=== PATIENT | female | born 1985 | race Caucasian/White ===

== ENCOUNTER 2019-06-26 23:13 | Day surgery (SDC) | payer OTHER, SELFPAY ==
[~2019-06-26] VITALS: Ht 162.6 cm; Wt 58.7 kg
[2019-06-27 00:51] LABS: BASO # 0.1 10^3/uL (0.0-0.2); BASO % 0.3 % (0.0-1.0); EOS # 0.3 10^3/uL (0.0-0.50); HEMATOCRIT 38.4 % (36.0-47.0); HEMOGLOBIN 12.6 g/dl (12.0-15.5); LYMPH # 3.1 10^3/uL (1.5-4.5); LYMPH % 19.1 % (24.0-44.0); MEAN CORPUSCULAR HEMOGLOBIN 28.3 pg (27.0-33.0); MEAN CORPUSCULAR HGB CONC 32.8 g/dl (32.0-36.5); MEAN CORPUSCULAR VOLUME 86.1 fl (80.0-96.0); MONO # 0.9 10^3/uL (0.0-0.8); MONO % 5.2 % (0.0-5.0); NEUTROPHILS # 11.9 10^3/uL (1.8-7.7); NEUTROPHILS % 73.1 % (36.0-66.0); PLATELET COUNT, AUTOMATED 233 10^3/uL (150-450); RED BLOOD COUNT 4.46 10^6/uL (4.00-5.40); WHITE BLOOD COUNT 16.3 10^3/uL (4.0-10.0)
[2019-06-27] MEDS ORDERED: GASTROGRAFIN SOLUTION 30ML (Q9963) As Ordered ONE (01:11)
[2019-06-27 01:12] LABS: ALBUMIN 3.7 GM/DL (3.2-5.2); ALT/SGPT 23 U/L (12-78); BILIRUBIN,DIRECT 0.1 MG/DL (0.0-0.2); BILIRUBIN,TOTAL 0.6 MG/DL (0.2-1.0); BLOOD UREA NITROGEN 9 MG/DL (7-18); CALCIUM LEVEL 9.1 MG/DL (8.5-10.1); CARBON DIOXIDE LEVEL 29 MEQ/L (21-32); CHLORIDE LEVEL 107 MEQ/L (98-107); CREATININE FOR GFR 0.74 MG/DL (0.55-1.30); GLOMERULAR FILTRATION RATE > 60.0 (>60); GLUCOSE, FASTING 93 MG/DL (70-100); LIPASE 110 U/L (73-393); POTASSIUM SERUM 3.7 MEQ/L (3.5-5.1); SODIUM LEVEL 141 MEQ/L (136-145); TOTAL PROTEIN 7.4 GM/DL (6.4-8.2)
[2019-06-27] MEDS ORDERED: KETOROLAC 30 MG/ML VIAL (J1885) IV ONE (01:15)
[2019-06-27] MEDS: GASTROGRAFIN SOLUTION 30ML PO SCH ×2 (01:25→01:48)
[2019-06-27] MEDS ORDERED: ISOVUE-370 76% 100ML VIAL (Q9967) As Ordered ONE (02:10)
--- NOTE | 2019-06-27 03:58 | REPVR ---
EXAM: CT Abdomen and Pelvis With Contrast EXAM DATE/TIME: 06/27/19 (2:47am) CLINICAL HISTORY: 34 year old female with generalized abdominal pain TECHNIQUE: Imaging protocol: Axial computed tomography images of the abdomen and pelvis with intravenous contrast. Coronal and sagittal reformatted images were created and reviewed. Radiation optimization: All CT scans at this facility use at least one of these dose optimization techniques: automated exposure control; mA and/or kV adjustment per patient size (includes targeted exams where dose is matched to clinical indication); or iterative reconstruction. Contrast material: Iso Contrast volume: 100 ml Contrast route: Antecubital vein COMPARISON: CT ABDOMEN PELVIS of 02/10/14 FINDINGS: Liver: Normal. No solid mass. Gallbladder and bile ducts: Normal. No calcified stones. No ductal dilatation. Pancreas: Normal. No ductal dilatation. Spleen: Normal. No splenomegaly. Adrenals: Normal. No mass. Kidneys and ureters: Normal. No hydronephrosis. Stomach and bowel: No bowel obstruction. Inflamed, edematous small bowel loops in the RLQ area and right upper pelvis (probably ileal loops). Appendix: Possible dilated, thickened appendix (13 mm diameter) (Ser. 201 - Images #83 - #107). Intraperitoneal space: Normal. No free air. No significant fluid collection. Vasculature: Normal. No abdominal aortic aneurysm. Lymph nodes: Normal. No enlarged lymph nodes. Bladder: Unremarkable as visualized. Reproductive: Unremarkable as visualized. Bones/joints: No acute fracture nor dislocation. Soft tissues: Unremarkable. IMPRESSION: Possible acute nonperforated appendicitis. A dilated non-opacified RLQ bowel loop is seen, in the expected location of the appendix. Clinical correlation is needed. Inflamed, edematous small bowel loops also present in the RLQ area and right upper pelvis --- perhaps inflamed secondary to appendicitis. No abscess. No bowel obstruction. No free air. Clinical correlation is needed. Electronically signed by: Perla Alvarado On 06/27/2019 03:57:30 AM
[2019-06-27] MEDS ORDERED: ACET-683 PO (04:43)
[2019-06-27] MEDS ORDERED: MORPHINE 4 MG/ML 1ML VIAL/SYRINGE (J2270) IV PRN ×2 (04:45→07:15)
[2019-06-27] MEDS ORDERED: PIPERACILLIN/TAZOBACTAM SOD 3.375 GM in D5W MINI-BAG PLUS 50 ML IV ONE (04:45)
[2019-06-27] MEDS ORDERED: ONDANSETRON 4MG/2ML VIAL (J2405) IV ONE (04:45)
[2019-06-27] MEDS ORDERED: MORPHINE 4 MG/ML 1ML VIAL/SYRINGE (J2270) As Ordered ONE (05:05)
[2019-06-27] MEDS ORDERED: ZOSYN 3.375 GM VIAL (J2543) As Ordered ONE (05:05)
[2019-06-27] MEDS ORDERED: ONDANSETRON 4MG/2ML VIAL (J2405) As Ordered ONE ×2 (05:05→08:35)
[2019-06-27 05:54] VITALS: BP 113/81
[2019-06-27] MEDS ORDERED: BUPIVACAINE/EPIN 0.25% 30 ML VIAL As Ordered ONE (07:48)
[2019-06-27] MEDS ORDERED: KCL 20MEQ IN D5/0.45NS 1000ML 1,000 ML IV SCH (07:51)
[2019-06-27] MEDS ORDERED: NORCO, ANEXSIA 5/325MG TABLET (HYDROcodone/ACETAMINOPHEN) PO PRN (08:00)
[2019-06-27] MEDS ORDERED: KETOROLAC 30 MG/ML VIAL (J1885) IV PRN (08:00)
[2019-06-27] MEDS ORDERED: ONDANSETRON 4MG/2ML VIAL (J2405) IV PRN ×2 (08:00→09:15)
[2019-06-27] MEDS ORDERED: ACETAMINOPHEN TAB 650MG DOSE (2X325MG) PO PRN (08:00)
[2019-06-27] MEDS ORDERED: KCL 20MEQ IN D5/.45NACL 1000ML As Ordered ONE (08:05)
[2019-06-27] MEDS ORDERED: MIDAZOLAM INJ 2 MG/2 ML VIAL (J2250) As Ordered ONE (08:35)
[2019-06-27] MEDS ORDERED: propofoL 200 MG/20 ML VIAL As Ordered ONE (08:35)
[2019-06-27] MEDS ORDERED: dexameTHASONE 4 MG/ML 1ML VIAL (J1100) As Ordered ONE (08:35)
[2019-06-27] MEDS ORDERED: SUGAMMADEX SODIUM 500 MG/5 ML VIAL (BRIDION) As Ordered ONE (08:35)
[2019-06-27] MEDS ORDERED: KETOROLAC 60 MG/2 ML VIAL (J1885) As Ordered ONE (08:35)
[2019-06-27] MEDS ORDERED: ROCURONIUM BROMIDE 50 MG/5 ML VIAL As Ordered ONE (08:35)
[2019-06-27] MEDS ORDERED: LIDOCAINE 2% INJ 100 MG/5 ML SDV (FOR ANES.) As Ordered ONE (08:35)
[2019-06-27] MEDS ORDERED: fentaNYL 250 MCG/5 ML INJECTION (J3010) As Ordered ONE (08:35)
[2019-06-27] MEDS ORDERED: PANTOPRAZOLE 40MG INJ (PROTONIX) (C9113) IV SCH (09:00)
[2019-06-27] MEDS ORDERED: SENOKOT S TAB PO SCH (09:00)
[2019-06-27] MEDS ORDERED: oxyCODONE 5MG TAB As Ordered ONE (09:06)
[2019-06-27] MEDS ORDERED: MORPHINE 10 MG/ML 1ML VIAL (J2270) As Ordered ONE (09:06)
[2019-06-27] MEDS: MORPHINE 10 MG/ML 1ML VIAL (J2270) IV PRN ×4 (09:06→09:23)
[2019-06-27] MEDS ORDERED: METOCLOPRAMIDE INJ 10MG/2ML VIAL (J2765) IV PRN (09:15)
[2019-06-27] MEDS ORDERED: PERCOCET 5MG/325MG TAB PO PRN (09:15)
[2019-06-27] MEDS ORDERED: oxyCODONE 5MG TAB PO PRN (09:15)
[2019-06-27] MEDS ORDERED: fentaNYL 100 MCG/2 ML INJECTION (J3010) IV PRN (09:15)
[2019-06-27] MEDS ORDERED: LR 1,000 ML IV SCH (09:15)
[2019-06-27 09:49] VITALS: BP 121/83
--- NOTE | 2019-06-27 10:23 | HPE ---
DATE OF ADMISSION: 06/27/2019 CHIEF COMPLAINT: Right lower quadrant pain. HISTORY OF PRESENT ILLNESS: Patient is a 34-year-old female who developed lower abdominal pain, started yesterday. It gradually got worse throughout the day. She first thought she had a ruptured ovarian cyst since she has had one in the past, but since the pain was progressively getting worse, she came into the emergency room (ER) for evaluation. In the ER, she had an elevated white count as well as CT findings suspicious for thick and dilated appendix and concerns for possible appendicitis. Therefore, I was called to evaluate. This morning her pain is still significant; it is not improving at all. No nausea or vomiting, no fevers or chills. No problems with urination or bowel movements. No recent trauma to the area. No medications and no recent illness. PAST MEDICAL HISTORY: Negative. PAST SURGICAL HISTORY: Laparoscopic procedure for ovarian cyst that was ruptured. ALLERGIES: None. HOME MEDICATIONS: None. SOCIAL HISTORY: Smokes a pack a day. Denies drug or alcohol abuse. FAMILY HISTORY: Noncontributory. REVIEW OF SYSTEMS: Pertinent positives and negatives as stated history of the present illness. PHYSICAL EXAMINATION: General: Alert and oriented times three. No acute distress. Vital signs: Temperature 98.6, pulse 78, respirations 16, blood pressure 113/81, pulse oximetry 100% on room air. HEENT: Pupils equally round and react to light and accommodation. Heart: S1, S2, regular rate and rhythm. Lungs: Clear to auscultation bilaterally. Abdomen: Soft, tender to palpation right lower quadrant. Localized guarding. No rebound or rigidity. Extremities: No clubbing, cyanosis or edema. LABORATORY DATA: White count 16.3, hemoglobin 12.6, platelets 233, potassium 3.7, creatinine 0.74, lactic acid 0.9. IMAGING: CT abdomen and pelvis was completed, which showed dilated loops of small bowel in the right lower quadrant with a dilated thickened appendix up to 13 mm in diameter. ASSESSMENT/PLAN: Patient is a 34-year-old female with acute appendicitis. Recommendation is to proceed with laparoscopic appendectomy. Risks and benefits of procedure not limited to but including bleeding, infection, hernia formation, damage to surrounding structures, and need for further surgery were discussed in detail with the patient. Informed consent was obtained and procedure was planned. Postoperatively, will keep her overnight, make sure she has no fevers, is tolerating diet, then plan to discharge home first thing in the morning.
[2019-06-27] MEDS ORDERED: HYDR-4571 PO (10:34)
[2019-06-27 10:42] VITALS: BP 116/81
[2019-06-27] MEDS ORDERED: PIPERACILLIN/TAZOBACTAM SOD 3.375 GM in D5W MINI-BAG PLUS 50 ML IV SCH (11:00)
[2019-06-27 11:17] VITALS: BP 111/76
[2019-06-27 12:10] VITALS: BP 114/72
--- NOTE | 2019-06-29 16:34 | RO ---
DATE OF PROCEDURE: 06/27/2019 PREOPERATIVE DIAGNOSIS: Acute appendicitis. POSTOPERATIVE DIAGNOSIS: Acute appendicitis. PROCEDURE: Laparoscopic appendectomy. SURGEON: Dr. Oziel Bhakta MACHINE SETUP OPERATOR: None. ANESTHESIA: General. ESTIMATED BLOOD LOSS: 5 mL. COMPLICATIONS: None. INDICATIONS FOR PROCEDURE: The patient is a 34-year-old female who presents with right lower quadrant pain for just over a day, found to have acute appendicitis on CT. Recommendation was to proceed with laparoscopic possible open appendectomy. The risks and benefits of the procedure not limited to but including bleeding, infection, hernia formation, damage to surrounding structures and need for further surgery were discussed in detail with the patient. Informed consent was obtained and procedure was planned. DESCRIPTION OF PROCEDURE: The patient was brought back to operating room three, after sufficient sedation the abdomen was sterilely prepped and draped. Next, a time-out was done to confirm proper patient, proper procedure. Following that, a 5 mm incision made in left upper quadrant, Veress needle inserted and the abdomen was insufflated to 15 mmHg. Next, the Veress needle was removed and a 5 mm Optiview port was used to gain access to the abdomen. Once the abdomen was entered, another 8 mm port was placed supraumbilically and another 5 mm port suprapubically. The right lower quadrant was identified, the cecum was elevated up revealing the appendix. The appendix was then elevated. Mesoappendix was taken down using the Enseal to the base of the appendix, which was then ligated with two PDS Endoloops and then amputated using the Enseal. It was placed inside of a 5 mm Endo Catch bag and brought out through the umbilical port site. Once that was completed, the right lower quadrant was examined to confirm hemostasis. The abdomen was then desufflated. Skin incisions were closed with #4-0 Vicryl subcuticular suture. The abdomen was cleaned and dried. Steri-Strips, 4x4, and tape were applied thus ending procedure.
== END 2019-06-27 13:45 | disposition home or self-care (01) ==
LOC: M ED 23:13 → M SDC 06-27 04:37 → M MS5PR 06-27 05:57 → M SDC 06-27 13:45
PROVIDERS: ATTEND Surgery
DX: K35.890 Other acute appendicitis without perforation or gangrene (principal); F17.210 Nicotine dependence, cigarettes, uncomplicated
CPT/HCPCS: 44970; 74177; 80048; 80076; 81001; 83605; 83690; 84702; 85025; 87040; 87186; 88302; 96374; 96375; 96376; 99284; C9113; J1100; J1885; J2250; J2270; J2405; J2543; J3010; Q9967

== ENCOUNTER → 2019-08-18 | Outpatient (CLI) | payer MEDICAID ==
[~2019-08-18] MED LIST: ACET-683 PO; HYDR-4571 PO
[2019-08-18 16:48] LABS: HCG, SERUM QUANTITATIVE < 1.0 MIU/ML
[2019-08-18 16:53] LABS: HCG, SERUM QUALITATIVE NEGATIVE (NEGATIVE)
== END ==
LOC: M LAB 15:46
PROVIDERS: ATTEND Physician Assistant Medical
DX: N91.2 Amenorrhea, unspecified (principal)

== ENCOUNTER 2020-02-12 08:32 | Inpatient (IN) | payer MEDICAID, OTHER ==
[~2020-02-12] VITALS: Ht 160 cm; Wt 68.2 kg
[2020-02-12 08:59] VITALS: BP 141/74
[2020-02-12] MEDS ORDERED: LR 1,000 ML IV SCH (09:26)
--- NOTE | 2020-02-12 10:00 | HPE ---
DATE OF ADMISSION: 02/12/2020 Payal is a 34-year-old 6, para 3-0-2-3 at 21 6/7 weeks gestation with an estimated date of confinement (EDC) of 06/18/2020 based on last menstrual period. She presents to labor and delivery as an registered patient. She has received no care throughout this . She reports that she started having uterine contractions at approximately 0700 this morning with a spontaneous rupture of membranes after palpating a large bag of water and her vagina and 0730. She does report the fluid is clear and now she reports some positive bleeding. She does report movement. CARE: None. course complicated by advanced maternal age, smoking during and no care. OBSTETRICAL HISTORY: #1: 04/10/2003, spontaneous vaginal delivery at term, live female weighing 8 pounds 6 ounces uncomplicated. #2: 12/20/2005, spontaneous vaginal delivery at term male weighing 7 pounds 13 ounces uncomplicated . #3: 10/28/2017, spontaneous vaginal delivery at 39 weeks following induction for pre-eclampsia. Male fetus 7 pounds 3 ounces. #4: 2003, spontaneous miscarriage. #5: 2016 spontaneous miscarriage. OBSTETRIC LABS: None for review. PAST MEDICAL HISTORY: History of an abnormal Pap. Endometriosis. Ovarian cyst rupture. SURGERIES: Colposcopy. Ovarian cystectomy. Appendectomy. FAMILY HISTORY: Cancer, hypertension, diabetes. SOCIAL HISTORY: The patient is however, there is a father of baby involved and he is at bedside and supportive. She is a smoker. She reports smoking half a pack per day. She denies alcohol and drug use. She does report a positive history of human papillomavirus (HPV) and she denies history of abuse physical, sexual and emotional. ALLERGIES: No known drug allergies. CURRENT MEDICATIONS: Chewable vitamins from time to time. OBJECTIVE: Blood pressure upon arrival 141/74, maternal heart rate 117. heart rate difficult to trace. It does seem to be nearing the maternal heart rate. Contractions are every 2 minutes. They do palpate strong. She is grossly ruptured with blood-stained amniotic fluid. Sterile vaginal exam 3-4 cm dilated. There is a part in the vagina uncertain of whether it is an arm or a leg. Bedside ultrasound shows twin gestation with a dividing membranes. ASSESSMENT: Intrauterine twin gestation at this time and 21 weeks 6 days based on last menstrual period (LMP), term premature rupture of membranes (tPROM), labor. PLAN: Per consult with Dr. Carina Koehler, admit the patient to labor and delivery. Routine labs with the addition of a spot urine of pre-eclamptic profile. labs. Bedside ultrasound. IV fluids. Clear liquid diet. Out of bed ad matilde. I did review the nonviability of this twin gestation with the patient and her . They are distraught over the diagnosis. I do anticipate continued labor progress and vaginal delivery. I reviewed with the patient that as long as she stays stable, the plan will be to continue with a vaginal delivery. If there is any evidence of hemorrhage, then we would proceed to section. She has been verbally consented for emergency surgery and blood products if that is necessary. The patient and her partner have had their questions answered and she will be monitored.
[2020-02-12 11:14] VITALS: BP 133/63
[2020-02-12 11:19] LABS: MEAN CORPUSCULAR HGB CONC 33.3 g/dl (32.0-36.5); PLATELET COUNT, AUTOMATED 277 10^3/uL (150-450); RED BLOOD COUNT 2.76 10^6/uL (4.00-5.40); WHITE BLOOD COUNT 18.6 10^3/uL (4.0-10.0)
--- NOTE | 2020-02-12 11:25 | REP ---
Obstetric sonography: Multiple gestation. History: No care. Twin gestation. Premature rupture of membranes. No comparison study. Findings: There appears to be a diamniotic monochorionic twin gestation. Placenta is posterior grade 0 without evidence of previa or abruption. Closed cervical length could not be obtained. It appears that the legs of baby A are within the endocervical canal. There is discordant growth. Twin A is breech in lie along maternal left. No heart rate is seen in the fetus A consistent with intrauterine demise. Severe hydrops and ascites are seen in baby A. Amniotic fluid is subjectively oligohydramnios. The deepest pocket surrounding baby A is 0.9 centimeters. Abdominal ascites may overestimate gestational age of fetus A. Twin B is living breech in lie along the maternal right. heart rate for twin B is 127 beats per minute. Amniotic fluid is subjectively oligohydramnios. The deepest pocket of amniotic fluid measures 1.3 cm. No extrauterine abnormalities observed. Biometry chart fetus A: BPD 4.7 cm = 20 weeks 1 day Head circumference 16.1 cm = 18 weeks 6 days Abdominal circumference 27.4 cm = 31 weeks 3 days Femur length 2.5 cm = 17 weeks 4 days Humeral length 2.9 cm = 19 weeks 3 days HC/AC ratio abnormal 0.59. Cephalic index 0.85. Estimated weight 750 grams, 1 pound 10 ounces, JUAN 0.9 cm. heart rate 0. Biometry chart fetus B: BPD 4.3 cm = 19 weeks 0 days Head circumference 16.1 cm = 18 weeks 6 days Abdominal circumference 13.2 cm = 18 weeks 5 days Femur length 2.8 cm = 18 weeks 4 days Humeral length 2.8 cm = 19 weeks 1 day HC/AC ratio normal 1.22. Cephalic index normal 0.74. Estimated weight 283 grams, 0 pounds 8 ounces, less than 3rd percentile. heart rate 127 beats per minute JUAN 1.3. The following anatomic structures are identified in fetus A and felt to be unremarkable: choroid plexus, spine, upper extremities. The following anatomic structures are identified in fetus B and felt to be unremarkable: cranium, choroid plexus, cavum, cerebellum and posterior fossa, lungs, left-sided stomach, three-vessel cord, kidneys, spine, upper and lower extremities. Impression: 1. Twin intrauterine gestation. Intrauterine demise of twin A, footling breech lie; legs in the maternal cervical canal. Significant hydrops fetus A. Large amount of ascites. Fetus B living, breech in lie. Gestational age estimate based on fetus B is 21 weeks 4 days, JACOB June 20, 2020. 2. Oligohydramnios. Electronically Signed by Brett Bravo MD 02/12/2020 03:50 P
[2020-02-12 11:44] LABS: ALT/SGPT 22 U/L (12-78); BILIRUBIN,TOTAL 0.5 MG/DL (0.2-1.0); CREATININE FOR GFR 0.53 MG/DL (0.55-1.30); GLOMERULAR FILTRATION RATE > 60.0 (>60); LDH LACTATE DEHYDROGENASE 170 U/L (84-246); URIC ACID 2.8 MG/DL (2.6-6.0)
[2020-02-12] MEDS ORDERED: RHOGAM 300 MCG (1500 IU) INJ (J2790) IM SCH (12:00)
[2020-02-12] MEDS ORDERED: MEASLES,MUMPS,RUBELLA VACCINE INJ (MMR-II) (90707) SC SCH (12:00)
[2020-02-12] MEDS ORDERED: IBUPROFEN 800 MG TAB PO PRN (12:00)
[2020-02-12] MEDS ORDERED: ACETAMINOPHEN TAB 650MG DOSE (2X325MG) PO PRN (12:00)
[2020-02-12] MEDS ORDERED: IBUPROFEN 600 MG TAB PO PRN (12:00)
[2020-02-12] MEDS ORDERED: ACETAMINOPHEN 500 MG TAB PO PRN (12:00)
[2020-02-12] MEDS ORDERED: DOCUSATE SODIUM 100 MG CAP PO PRN (12:00)
[2020-02-12] MEDS ORDERED: DIBUCAINE 1% OINTMENT 30GM TOP PRN (12:00)
[2020-02-12 12:10] VITALS: BP 91/56
[2020-02-12] MEDS ORDERED: OXYTOCIN INJ 10 UNITS/ML VIAL (J2590) IV ONE (12:15)
--- NOTE | 2020-02-12 12:22 | DN ---
DATE: Dejah is a 34-year-old, 6, para 3-2-2-3-1 now, was admitted to labor and delivery in active labor with premature rupture of membranes. Her labor ensued physiologically. She did reach full dilation at 11:26. She pushed once and delivered twin A in breech position nonliving fetus at 11:32. The cord was clamped times two and cut by myself. The fetus was laid on the maternal abdomen for bonding. She delivered twin B in breech position nonliving fetus at 11:36 with the placenta at the same time. The cord was clamped times two, cut by myself and placed on maternal abdomen. Placenta delivered intact. It will be sent to pathology. This is a mono Di twin gestation. Of note, twin A severe hydrops, twin B appears to be intrauterine growth restriction (IUGR). They both appear to be female fetuses. Uterine hemostasis was achieved with IV Pitocin rapid infusion and uterine fundal massage. Estimated blood loss 200 mL. Perineum and vagina were inspected and noted to be intact. At this time, I have not discussed with the patient genetic testing nor autopsy. The parents and one family member are in the room for support. She is reacting appropriately, will consider early discharge later in the day. At the close of delivery, instrument counts and lap counts were correct and verified.
[2020-02-12 12:32] LABS: BARBITURATES URINE REFLEX NEGATIVE (NEGATIVE); BENZODIAZEPINES URINE REFLEX NEGATIVE (NEGATIVE); CANNABINOIDS URINE REFLEX NEGATIVE (NEGATIVE); COCAINE METABOLITE URINE REFLE NEGATIVE (NEGATIVE); METHADONE URINE REFLEX NEGATIVE (NEGATIVE); PHENCYCLIDINE URINE REFLEX NEGATIVE (NEGATIVE)
[2020-02-12 12:33] LABS: CREATININE,RANDOM URINE 80.2 MG/DL; TOTAL PROTEIN,RANDOM URINE 123.7 MG/DL (0.0-12.0)
[2020-02-12 12:34] LABS: HEPATITIS C VIRUS ABY INDEX < 0.0 INDEX (<0.8)
[2020-02-12 12:35] LABS: HIV 1&2 SCREEN CENTAUR NEGATIVE (NEGATIVE)
[2020-02-12 12:47] VITALS: BP 132/73
[2020-02-12 13:11] LABS: AMPHETAMINES URINE REFLEX PENDING CONFIRMATION (NEGATIVE); OPIATES URINE REFLEX PENDING CONFIRMATION (NEGATIVE)
[2020-02-12 13:36] VITALS: BP 118/58
[2020-02-12 13:49] LABS: CHLAMYDIA DNA AMPLIFICATION NEGATIVE (NEGATIVE); GC DNA AMPLIFICATION NEGATIVE (NEGATIVE)
[2020-02-12 19:49] VITALS: BP 134/80
[2020-02-12] MEDS ORDERED: INFLUENZA QUADRIVALENT PF VACCINE 0.5ML SYRINGE (90686) IM ONE (20:00)
[2020-02-13] MEDS ORDERED: PRENATAL VITAMINS CHEWABLE TABLET PO SCH (09:00)
[2020-02-17 08:06] LABS: Amphetamine Negative (Cutoff=500); Amphetamines Positive (.); Codeine Negative (Cutoff=200); GC Methamphetam >4000 ng/mL (Cutoff=500); GC Morphine 544 ng/mL (Cutoff=200); Methamphetamine Positive (.); Morphine Positive (.); Opiates Positive (.)
== END 2020-02-12 20:34 | disposition home or self-care (01) | DRG 805 ==
LOC: M LDO 08:32 → M LDI 09:16 → M PCU 13:27 → M LDI 13:30
PROVIDERS: ADMIT Advanced Practice Midwife; ATTEND Advanced Practice Midwife
PROC: 10E0XZZ Delivery of Products of Conception, External Approach (ICD-10-PCS; principal; 2020-02-12)
DX: O42.012 Preterm premature rupture of membranes, onset of labor within 24 hours of rupture, second trimester (principal); Z37.4 Twins, both stillborn; O45.92 Premature separation of placenta, unspecified, second trimester; O30.032 Twin pregnancy, monochorionic/diamniotic, second trimester; Z3A.21 21 weeks gestation of pregnancy; O99.334 Smoking (tobacco) complicating childbirth; F17.200 Nicotine dependence, unspecified, uncomplicated

== ENCOUNTER 2022-10-31 16:09 | Outpatient (CLI) | payer OTHER ==
[~2022-10-31] VITALS: Ht 162.6 cm; Wt 73.2 kg
[2022-10-31 16:28] VITALS: BP 127/82
[2022-10-31] MEDS ORDERED: HOME MED LIST COMPLETE! XX SCH (16:45)
[2022-10-31 18:12] LABS: BASO # 0.1 10^3/uL (0.0-0.2); BASO % 0.5 % (0.0-1.0); HEMATOCRIT 37.5 % (36.0-47.0); HEMOGLOBIN 11.7 g/dl (12.0-15.5); LYMPH # 2.8 10^3/uL (1.5-5.0); MEAN CORPUSCULAR HEMOGLOBIN 28.7 pg (27.0-33.0); MEAN CORPUSCULAR HGB CONC 31.2 g/dl (32.0-36.5); MEAN CORPUSCULAR VOLUME 92.1 fl (80.0-96.0); MONO # 0.7 10^3/uL (0.0-0.8); MONO % 4.7 % (2.0-8.0); NEUTROPHILS # 10.1 10^3/uL (1.5-8.5); NEUTROPHILS % 72.5 % (36.0-66.0); PLATELET COUNT, AUTOMATED 222 10^3/uL (150-450); RED BLOOD COUNT 4.07 10^6/uL (4.00-5.40); WHITE BLOOD COUNT 13.9 10^3/uL (4.0-10.0)
[2022-10-31 18:51] LABS: TOTAL PROTEIN,RANDOM URINE 8.9 MG/DL (0.0-14.0)
[2022-10-31 18:52] LABS: AMPHETAMINES URINE REFLEX NEGATIVE (NEGATIVE); BARBITURATES URINE REFLEX NEGATIVE (NEGATIVE); BENZODIAZEPINES URINE REFLEX NEGATIVE (NEGATIVE); CANNABINOIDS URINE REFLEX NEGATIVE (NEGATIVE); COCAINE METABOLITE URINE REFLE NEGATIVE (NEGATIVE); METHADONE URINE REFLEX NEGATIVE (NEGATIVE); OPIATES URINE REFLEX NEGATIVE (NEGATIVE)
[2022-10-31 18:53] LABS: PHENCYCLIDINE URINE REFLEX NEGATIVE (NEGATIVE)
[2022-10-31 19:27] LABS: URIC ACID 3.3 MG/DL (3.1-7.8)
[2022-10-31 19:29] LABS: LDH LACTATE DEHYDROGENASE 128 U/L (120-246)
[2022-10-31 19:30] LABS: ALT/SGPT 26 U/L (7.0-40); AST/SGOT 12 U/L (<34); BILIRUBIN,TOTAL 0.2 MG/DL (0.3-1.2); CREATININE FOR GFR 0.51 MG/DL (0.55-1.30); GLOMERULAR FILTRATION RATE > 60.0 (>60)
[2022-10-31 19:56] LABS: HIV 1&2 SCREEN CENTAUR NEGATIVE (NEGATIVE)
[2022-10-31 20:34] LABS: HEPATITIS C VIRUS ABY INDEX > 11.0 INDEX (<0.8)
== END 2022-10-31 19:15 | disposition home or self-care (01) ==
LOC: M LDO 16:09
PROVIDERS: ATTEND Advanced Practice Midwife
DX: O60.02 Preterm labor without delivery, second trimester (principal); O99.332 Smoking (tobacco) complicating pregnancy, second trimester; F17.210 Nicotine dependence, cigarettes, uncomplicated; O99.322 Drug use complicating pregnancy, second trimester; F11.10 Opioid abuse, uncomplicated; O99.342 Other mental disorders complicating pregnancy, second trimester; F31.30 Bipolar disorder, current episode depressed, mild or moderate severity, unspecified; F41.9 Anxiety disorder, unspecified; O09.522 Supervision of elderly multigravida, second trimester; Z3A.27 27 weeks gestation of pregnancy

== ENCOUNTER → 2022-12-10 | Outpatient (CLI) | payer OTHER ==
[2022-12-10 15:52] LABS: HEMATOCRIT 36.6 % (36.0-47.0); HEMOGLOBIN 11.9 g/dl (12.0-15.5); MEAN CORPUSCULAR HGB CONC 32.5 g/dl (32.0-36.5); MEAN CORPUSCULAR VOLUME 89.1 fl (80.0-96.0); PLATELET COUNT, AUTOMATED 217 10^3/uL (150-450); RED BLOOD COUNT 4.11 10^6/uL (4.00-5.40); WHITE BLOOD COUNT 8.5 10^3/uL (4.0-10.0)
[2022-12-10 16:12] LABS: URIC ACID 3.5 MG/DL (3.1-7.8)
[2022-12-10 16:14] LABS: LDH LACTATE DEHYDROGENASE 158 U/L (120-246)
[2022-12-10 16:15] LABS: ALT/SGPT 31 U/L (7.0-40); AST/SGOT 26 U/L (<34); BILIRUBIN,TOTAL 0.4 MG/DL (0.3-1.2); CREATININE FOR GFR 0.54 MG/DL (0.55-1.30); GLOMERULAR FILTRATION RATE > 60.0 (>60)
[2022-12-10 18:05] LABS: TOTAL PROTEIN,RANDOM URINE 25.6 MG/DL (0.0-14.0)
[2022-12-10 18:10] LABS: CREATININE,RANDOM URINE 99.3 MG/DL
[2022-12-10 19:29] LABS: GC DNA AMPLIFICATION NEGATIVE (NEGATIVE)
== END ==
LOC: M PLALAB 13:25
PROVIDERS: ATTEND Advanced Practice Midwife
DX: Z34.93 Encounter for supervision of normal pregnancy, unspecified, third trimester (principal)

== ENCOUNTER 2022-12-21 12:13 | Outpatient (CLI) | payer OTHER ==
[~2022-12-21] VITALS: Ht 162.6 cm; Wt 77.2 kg
[~2022-12-21 12:13] MED LIST changes: -BETAMETHASONE SOLUSPAN 6MG/ML 5ML VIAL IM SCH; -PRENTAB9 PO; -suboxone
[2022-12-21 12:44] VITALS: BP 126/83
[2022-12-21] MEDS ORDERED: PRENTAB9 PO (12:46)
[2022-12-21] MEDS ORDERED: suboxone (12:57)
[2022-12-21] MEDS ORDERED: HOME MED LIST COMPLETE! XX SCH (13:00)
[2022-12-21] MEDS ORDERED: BETAMETHASONE SOLUSPAN 6MG/ML 5ML VIAL IM SCH (14:00)
[2022-12-21 14:35] LABS: LDH LACTATE DEHYDROGENASE 182 U/L (120-246)
[2022-12-21 14:36] LABS: ALT/SGPT 26 U/L (7.0-40); AST/SGOT 28 U/L (<34); BILIRUBIN,TOTAL 0.5 MG/DL (0.3-1.2); CREATININE FOR GFR 0.63 MG/DL (0.55-1.30); GLOMERULAR FILTRATION RATE > 60.0 (>60)
[2022-12-21 14:40] VITALS: BP 119/76
[2022-12-21 14:41] LABS: URIC ACID 4.1 MG/DL (3.1-7.8)
[2022-12-21 14:55] LABS: TOTAL PROTEIN,RANDOM URINE 49.5 MG/DL (0.0-14.0)
[2022-12-21 15:10] LABS: HEMATOCRIT 33.7 % (36.0-47.0); HEMOGLOBIN 11.2 g/dl (12.0-15.5); MEAN CORPUSCULAR HEMOGLOBIN 29.4 pg (27.0-33.0); MEAN CORPUSCULAR HGB CONC 33.2 g/dl (32.0-36.5); MEAN CORPUSCULAR VOLUME 88.5 fl (80.0-96.0); PLATELET COUNT, AUTOMATED 214 10^3/uL (150-450); RED BLOOD COUNT 3.81 10^6/uL (4.00-5.40)
[2022-12-21 15:11] LABS: CREATININE,RANDOM URINE 385.7 MG/DL
== END 2022-12-21 16:00 | disposition home or self-care (01) ==
LOC: M LDO 12:13
PROVIDERS: ATTEND Advanced Practice Midwife
DX: O26.893 Other specified pregnancy related conditions, third trimester (principal); R03.0 Elevated blood-pressure reading, without diagnosis of hypertension; Z3A.34 34 weeks gestation of pregnancy

== ENCOUNTER → 2022-12-21 | Outpatient (REF) | payer OTHER ==
[~2022-12-21] MED LIST changes: +BETAMETHASONE SOLUSPAN 6MG/ML 5ML VIAL IM SCH; +PRENTAB9 PO; +suboxone
== END ==
LOC: M SFHCWAGY 12:46
PROVIDERS: ATTEND Advanced Practice Midwife
DX: Z34.93 Encounter for supervision of normal pregnancy, unspecified, third trimester (principal)

== ENCOUNTER 2022-12-22 14:07 | Outpatient (CLI) | payer OTHER ==
[~2022-12-22] VITALS: Ht 162.6 cm; Wt 79.7 kg
[~2022-12-22 14:07] MED LIST changes: +PRENTAB9 PO; +suboxone
[2022-12-22 14:23] VITALS: BP 132/74
[2022-12-22] MEDS ORDERED: HOME MED LIST COMPLETE! XX SCH (14:40)
[2022-12-22] MEDS ORDERED: BETAMETHASONE SOLUSPAN 6MG/ML 5ML VIAL IM ONE (15:30)
== END 2022-12-22 15:35 | disposition home or self-care (01) ==
LOC: M LDO 14:07
PROVIDERS: ATTEND Specialist
DX: O26.893 Other specified pregnancy related conditions, third trimester (principal); R03.0 Elevated blood-pressure reading, without diagnosis of hypertension; Z3A.34 34 weeks gestation of pregnancy

== ENCOUNTER → 2023-09-23 | Outpatient (CLI) | payer OTHER ==
[~2023-09-23] MED LIST changes: +SUBO8MIS SL
== END ==
LOC: M OUTALCOH 07:51
PROVIDERS: ATTEND Psychiatry & Neurology Psychiatry
DX: Z13.39 Encounter for screening examination for other mental health and behavioral disorders (principal)

== ENCOUNTER 2023-10-30 08:40 | Outpatient (RCR) | payer OTHER | END 2023-10-31 | LOC: M OUTALCOH 08:40 | PROVIDERS: ATTEND Psychiatry & Neurology Psychiatry | DX: F11.20 Opioid dependence, uncomplicated (principal); F15.20 Other stimulant dependence, uncomplicated; F17.200 Nicotine dependence, unspecified, uncomplicated ==

== ENCOUNTER 2023-11-27 11:57 | Outpatient (RCR) | payer OTHER | END 2023-12-01 | LOC: M OUTALCOH 11:57 | PROVIDERS: ATTEND Psychiatry & Neurology Psychiatry | DX: F11.20 Opioid dependence, uncomplicated (principal); F15.20 Other stimulant dependence, uncomplicated; F17.200 Nicotine dependence, unspecified, uncomplicated ==

== ENCOUNTER 2023-12-30 14:00 | Outpatient (RCR) | payer OTHER | END 2024-01-01 | LOC: M OUTALCOH 14:00 | PROVIDERS: ATTEND Psychiatry & Neurology Child & Adolescent Psychiatry | DX: F11.20 Opioid dependence, uncomplicated (principal); F15.20 Other stimulant dependence, uncomplicated; F17.200 Nicotine dependence, unspecified, uncomplicated ==

== ENCOUNTER 2024-01-17 15:00 | Outpatient (RCR) | payer OTHER | END 2024-01-30 | LOC: M OUTALCOH 15:00 | PROVIDERS: ATTEND Psychiatry & Neurology Psychiatry | DX: F11.20 Opioid dependence, uncomplicated (principal); F15.20 Other stimulant dependence, uncomplicated; F17.200 Nicotine dependence, unspecified, uncomplicated ==

== ENCOUNTER 2024-01-27 16:00 | Outpatient (RCR) | payer OTHER | END 2024-01-30 | LOC: M OUTALCOH 16:00 | PROVIDERS: ATTEND Psychiatry & Neurology Psychiatry | DX: F11.20 Opioid dependence, uncomplicated (principal); F15.20 Other stimulant dependence, uncomplicated; F17.200 Nicotine dependence, unspecified, uncomplicated ==

== ENCOUNTER 2024-03-27 15:22 | Outpatient (RCR) | payer OTHER | END 2024-03-31 | LOC: M OUTALCOH 15:22 | PROVIDERS: ATTEND Psychiatry & Neurology Child & Adolescent Psychiatry | DX: F11.20 Opioid dependence, uncomplicated (principal); F15.20 Other stimulant dependence, uncomplicated; F17.200 Nicotine dependence, unspecified, uncomplicated ==

== ENCOUNTER 2024-04-13 08:23 | Outpatient (RCR) | payer OTHER | END 2024-05-01 | LOC: M OUTALCOH 08:23 | PROVIDERS: ATTEND Psychiatry & Neurology Child & Adolescent Psychiatry | DX: F11.20 Opioid dependence, uncomplicated (principal); F15.20 Other stimulant dependence, uncomplicated; F17.200 Nicotine dependence, unspecified, uncomplicated ==

== ENCOUNTER 2024-05-11 09:30 | Outpatient (RCR) | payer OTHER | END 2024-05-31 | LOC: M OUTALCOH 09:30 | PROVIDERS: ATTEND Psychiatry & Neurology Psychiatry | DX: F11.20 Opioid dependence, uncomplicated (principal); F15.20 Other stimulant dependence, uncomplicated; F17.200 Nicotine dependence, unspecified, uncomplicated ==

== ENCOUNTER → 2024-06-01 | Outpatient (CLI) | payer OTHER | LOC: M RAD 06:44 | PROVIDERS: ATTEND Nurse Practitioner Family | DX: B19.20 Unspecified viral hepatitis C without hepatic coma (principal); K76.0 Fatty (change of) liver, not elsewhere classified ==

== ENCOUNTER → 2024-06-18 | Outpatient (CLI) | payer OTHER | LOC: M WHC 14:58 | PROVIDERS: ATTEND Nurse Practitioner Family | DX: Z12.31 Encounter for screening mammogram for malignant neoplasm of breast (principal); R92.323 Mammographic fibroglandular density, bilateral breasts ==

== ENCOUNTER → 2024-06-18 | Outpatient (REF) | payer OTHER ==
[2024-06-23 14:57] LABS: HPV APTIMA Detected (Not Detected)
== END ==
LOC: M SFHCWAGY 17:34
PROVIDERS: ATTEND Nurse Practitioner Family
DX: Z12.4 Encounter for screening for malignant neoplasm of cervix (principal); R87.5 Abnormal microbiological findings in specimens from female genital organs; R87.810 Cervical high risk human papillomavirus (HPV) DNA test positive

== ENCOUNTER 2024-06-19 14:41 | Outpatient (RCR) | payer OTHER | END 2024-07-01 | LOC: M OUTALCOH 14:41 | PROVIDERS: ATTEND Psychiatry & Neurology Psychiatry | DX: F11.20 Opioid dependence, uncomplicated (principal); F15.20 Other stimulant dependence, uncomplicated; F17.200 Nicotine dependence, unspecified, uncomplicated ==

== ENCOUNTER → 2024-06-25 | Outpatient (CLI) | payer OTHER ==
[2024-06-25 11:13] LABS: HEMATOCRIT 39.7 % (36.0-47.0); HEMOGLOBIN 13.5 g/dl (12.0-15.5); MEAN CORPUSCULAR VOLUME 85.2 fl (80.0-96.0); PLATELET COUNT, AUTOMATED 185 10^3/uL (150-450); RED BLOOD COUNT 4.66 10^6/uL (4.00-5.40); WHITE BLOOD COUNT 7.1 10^3/uL (4.0-10.0)
[2024-06-25 11:34] LABS: HEMOGLOBIN A1c 5.2 % (4.0-6.0)
[2024-06-25 11:40] LABS: ALBUMIN 3.8 G/DL (3.2-5.2); ALKALINE PHOSPHATASE 70 U/L (46-116); ALT/SGPT 184 U/L (7.0-40); AST/SGOT 122 U/L (<34); BILIRUBIN,TOTAL 0.7 MG/DL (0.3-1.2); BLOOD UREA NITROGEN 15 MG/DL (9-23); CARBON DIOXIDE LEVEL 25 MMOL/L (20-31); CHLORIDE LEVEL 108 MMOL/L (98-107); CHOLESTEROL LEVEL 89 MG/DL (<200); CHOLESTEROL RISK RATIO 2.88 (<5); CREATININE FOR GFR 0.66 MG/DL (0.55-1.30); GLOMERULAR FILTRATION RATE > 60.0 (>58); GLUCOSE, FASTING 85 MG/DL (60-100); HDL CHOLESTEROL 30.9 MG/DL (>40); LDL CHOLESTEROL 35.5 MG/DL (<100); NON-HDL-C 58.1 MG/DL; POTASSIUM SERUM 3.7 MMOL/L (3.5-5.1); SODIUM LEVEL 140 MMOL/L (136-145); TRIGLYCERIDES LEVEL 113 MG/DL (<150)
[2024-06-25 11:41] LABS: THYROID STIMULATING HORMONE 2.796 uIU/ML (0.55-4.78)
[2024-06-25 12:17] LABS: HEPATITIS B SURFACE ANTIGEN NEGATIVE (NEGATIVE); HIV 1&2 SCREEN NEGATIVE (NEGATIVE)
[2024-06-25 12:58] LABS: HEPATITIS B SURFACE ANTIBODY NEGATIVE (POSITIVE)
[2024-06-25 13:02] LABS: HEPATITIS C VIRUS ABY INDEX > 11.00 INDEX (<0.8)
[2024-06-26 23:37] LABS: HCV RNA QUANTITATION 16100000 IU/mL (NOT DETECTED); HCV RNA log10 7.21 Log IU/mL (NOT DETECTED)
== END ==
LOC: M LAB 09:54
PROVIDERS: ATTEND Nurse Practitioner Family
DX: E66.3 Overweight (principal); E55.9 Vitamin D deficiency, unspecified; B19.20 Unspecified viral hepatitis C without hepatic coma; Z11.9 Encounter for screening for infectious and parasitic diseases, unspecified

== ENCOUNTER → 2024-09-21 | Outpatient (CLI) | payer OTHER ==
[2024-09-21 11:10] LABS: ALBUMIN 3.4 G/DL (3.2-5.2); BILIRUBIN,DIRECT 0.1 MG/DL (<0.4); BILIRUBIN,TOTAL 0.2 MG/DL (0.3-1.2); TOTAL PROTEIN 6.8 G/DL (5.7-8.2)
[2024-09-22 14:28] LABS: HEPATITIS A IgG TOTAL REACTIVE (NON-REACTIVE); HEPATITIS B CORE ANTIBODY IGG NON-REACTIVE (NON-REACTIVE)
== END ==
LOC: M PLALAB 08:10
PROVIDERS: ATTEND Internal Medicine Infectious Disease
DX: B18.2 Chronic viral hepatitis C (principal)

== ENCOUNTER 2024-12-16 09:02 | Day surgery (SDC) | payer OTHER ==
[~2024-12-16] VITALS: Ht 162.6 cm; Wt 77.1 kg
[~2024-12-16 09:02] MED LIST changes: +ATEN25TA PO
[2024-12-16] MEDS ORDERED: propofoL 200 MG/20 ML VIAL As Ordered ONE (11:41)
[2024-12-16] MEDS ORDERED: dexmedeTOMIDine (4MCG/ML)200MCG/50ML BTL (PRECEDEX) As Ordered ONE (11:41)
[2024-12-16] MEDS ORDERED: LIDOCAINE 2% 100MG/5ML SDV (FOR ANES.) As Ordered ONE (11:41)
[2024-12-16 11:45] VITALS: TEMP 98
[2024-12-16 12:13] VITALS: BP 111/79; O2SAT 96
== END 2024-12-16 12:25 | disposition home or self-care (01) ==
LOC: M OPP 09:02
PROVIDERS: ATTEND Surgery
DX: K92.1 Melena (principal); K21.9 Gastro-esophageal reflux disease without esophagitis; Z90.49 Acquired absence of other specified parts of digestive tract; I10 Essential (primary) hypertension; Z79.899 Other long term (current) drug therapy; F11.20 Opioid dependence, uncomplicated; F17.290 Nicotine dependence, other tobacco product, uncomplicated; Z86.19 Personal history of other infectious and parasitic diseases; Z80.0 Family history of malignant neoplasm of digestive organs

== ENCOUNTER → 2024-12-29 | Outpatient (REF) | payer OTHER | LOC: M SFHCDERM 17:15 | PROVIDERS: ATTEND Physician Assistant | DX: L72.12 Trichodermal cyst (principal) ==

== ENCOUNTER 2025-04-21 07:37 | Day surgery (SDC) | payer OTHER ==
[~2025-04-21] VITALS: Ht 162.6 cm; Wt 77.0 kg
[2025-04-21] MEDS ORDERED: propofoL 200 MG/20 ML VIAL As Ordered ONE (08:21)
[2025-04-21 08:36] VITALS: TEMP 98.1
[2025-04-21 08:56] VITALS: BP 125/76; O2SAT 100
== END 2025-04-21 09:00 | disposition home or self-care (01) ==
LOC: M OPP 07:37
PROVIDERS: ATTEND Surgery
DX: K92.1 Melena (principal); K64.0 First degree hemorrhoids; K21.9 Gastro-esophageal reflux disease without esophagitis; Z90.49 Acquired absence of other specified parts of digestive tract; I10 Essential (primary) hypertension; Z79.899 Other long term (current) drug therapy; Z79.891 Long term (current) use of opiate analgesic; F17.290 Nicotine dependence, other tobacco product, uncomplicated; Z80.0 Family history of malignant neoplasm of digestive organs